=== PATIENT | female | born 1945 | race Caucasian/White ===

== ENCOUNTER 2022-01-04 19:12 | Inpatient (IN) | payer OTHER ==
[2022-01-04 23:05] LABS: BASO % 0.4 % (0-2.0); EOS % 0.6 % (0-4.5); HEMATOCRIT 39.3 % (32.4-45.2); LYMPH % 58.6 % (8-40); MCHC 33.1 g/dl (32.0-36.0); MEAN CELL VOLUME 99.5 fl (80-96); MEAN PLT VOLUME 8.1 fl (7.5-11.1); MONO % 5.3 % (3.8-10.2); NEUT % 35.1 % (42.8-82.8); PLATELET COUNT 100 10^3/uL (134-434); RBC 3.95 M/mm3 (3.60-5.2); RDW 13.9 % (11.6-15.6); WHITE BLOOD COUNT 10.3 K/mm3 (4.0-10.0)
[2022-01-04 23:27] LABS: CALCIUM 8.2 mg/dL (8.5-10.1)
[2022-01-04 23:28] LABS: ALBUMIN 3.3 g/dl (3.4-5.0); BLOOD UREA NITROGEN 29.5 mg/dL (7-18)
[2022-01-04 23:32] LABS: BILIRUBIN,TOTAL 0.4 mg/dL (0.2-1)
[2022-01-04 23:33] LABS: TOT PROT 5.7 g/dl (6.4-8.2)
[2022-01-04 23:34] LABS: CREATININE 0.3 mg/dL (0.55-1.3)
[2022-01-05] MEDS: ALBUTEROL SO4 2.5/IPRATROPIUM 0.5 INH SOL 3 ML VIAL.NEB. NEB SCH ×3 (08:24→19:30)
[2022-01-05] MEDS: TAMSULOSIN HCL 0.4 MG CAP PO SCH (09:28)
[2022-01-05] MEDS: ENOXAPARIN NA (PORCINE) 40 MG/0.4 ML DISP.SYRIN SQ SCH (09:28)
[2022-01-05] MEDS: FUROSEMIDE 20 MG TABLET (FP) PO SCH (09:28)
[2022-01-05] MEDS: levETIRAcetam 500 MG TABLET (FP) PO SCH ×2 (09:28→22:42)
[2022-01-05 11:06] LABS: HEMATOCRIT 41.2 % (32.4-45.2); HEMOGLOBIN 13.7 GM/dL (10.7-15.3); MCH 33.7 pg (25.7-33.7); MCHC 33.2 g/dl (32.0-36.0); MEAN CELL VOLUME 101.6 fl (80-96); MEAN PLT VOLUME 9.4 fl (7.5-11.1); PLATELET COUNT 116 10^3/uL (134-434); RBC 4.05 M/mm3 (3.60-5.2); RDW 13.7 % (11.6-15.6); WHITE BLOOD COUNT 12.3 K/mm3 (4.0-10.0)
[2022-01-05 12:13] LABS: ALBUMIN 3.4 g/dl (3.4-5.0); BILIRUBIN,TOTAL 0.4 mg/dL (0.2-1); BLOOD UREA NITROGEN 29.2 mg/dL (7-18); CALCIUM 8.4 mg/dL (8.5-10.1); CREATININE 0.5 mg/dL (0.55-1.3); MAGNESIUM 2.1 mg/dL (1.8-2.4); TOT PROT 5.7 g/dl (6.4-8.2)
[2022-01-05 12:37] LABS: ANISOCYTOSIS 2+; MACROCYTOSIS 0; OVALOCYTE 2+
[2022-01-05] MEDS: ATORVASTATIN CA 80 MG TABLET (FP) PO SCH (22:42)
[2022-01-06 06:46] LABS: EPI CELLS 5 /uL (0-25.1); HYALINE CASTS 0 /uL (0-3.1); PH,URINE 5.5 (5.0-8.0); URINE APPEARANCE CLEAR; URINE BACTERIA 3 /uL (0-1359); URINE BILIRUBIN NEGATIVE (NEGATIVE); URINE COLOR YELLOW; URINE GLUCOSE (UA) NEGATIVE (NEGATIVE); URINE KETONE NEGATIVE (NEGATIVE); URINE LEUK ESTERASE NEGATIVE (NEGATIVE); URINE NITRITE NEGATIVE (NEGATIVE); URINE PROTEIN NEGATIVE (NEGATIVE); URINE RBC 14 /uL (0-23.9); URINE UROBILINOGEN 0.2 mg/dL (0.2-1.0); URINE WBC 5 /uL (0-25.8)
[2022-01-06] MEDS: TAMSULOSIN HCL 0.4 MG CAP PO SCH (08:11)
[2022-01-06] MEDS: ALBUTEROL SO4 2.5/IPRATROPIUM 0.5 INH SOL 3 ML VIAL.NEB. NEB SCH ×3 (08:26→20:40)
[2022-01-06 09:25] LABS: URINE CRYSTALS PRESENT CA OXALATE /hpf
[2022-01-06] MEDS: levETIRAcetam 500 MG TABLET (FP) PO SCH ×2 (10:24→21:29)
[2022-01-06] MEDS: FUROSEMIDE 20 MG TABLET (FP) PO SCH (10:24)
[2022-01-06] MEDS: ENOXAPARIN NA (PORCINE) 40 MG/0.4 ML DISP.SYRIN SQ SCH (10:24)
[2022-01-06 11:16] LABS: HEMATOCRIT 38.8 % (32.4-45.2); HEMOGLOBIN 12.6 GM/dL (10.7-15.3); MCH 33.2 pg (25.7-33.7); MCHC 32.6 g/dl (32.0-36.0); MEAN CELL VOLUME 101.8 fl (80-96); MEAN PLT VOLUME 8.1 fl (7.5-11.1); PLATELET COUNT 92 10^3/uL (134-434); RBC 3.81 M/mm3 (3.60-5.2); RDW 13.8 % (11.6-15.6); WHITE BLOOD COUNT 8.6 K/mm3 (4.0-10.0)
[2022-01-06 11:37] LABS: CALCIUM 8.5 mg/dL (8.5-10.1)
[2022-01-06 11:38] LABS: ALBUMIN 3.2 g/dl (3.4-5.0); BLOOD UREA NITROGEN 19.6 mg/dL (7-18)
[2022-01-06 11:41] LABS: CREATININE 0.5 mg/dL (0.55-1.3)
[2022-01-06 11:42] LABS: TOT PROT 5.2 g/dl (6.4-8.2)
[2022-01-06 11:43] LABS: BILIRUBIN,TOTAL 0.4 mg/dL (0.2-1)
[2022-01-06 11:49] LABS: ANISOCYTOSIS 0; MACROCYTOSIS 0; PLATELET ESTIMATE DECREASED
[2022-01-06] MEDS ORDERED: POTASSIUM CHLORIDE TABS 20 MEQ TABLET.ER (FP) PO ONE (12:15)
[2022-01-06] MEDS ORDERED: REMDESIVIR 100 MG in SODIUM CHLORIDE 250 ML IVPB SCH (15:45)
[2022-01-06 16:45] LABS: ARTERIAL BLD GAS O2 SATURATION 93.8 % (95-98); ARTERIAL BLOOD GAS BASE EXCESS 14.4 mmol/L (-2-2); ARTERIAL BLOOD GAS PO2 74.1 mmHg (80-100); ARTERIAL BLOOD GAS pH 7.373 (7.350-7.450)
[2022-01-06] MEDS: ATORVASTATIN CA 80 MG TABLET (FP) PO SCH (21:29)
[2022-01-06] MEDS: OLANZapine 5 MG TABLET PO SCH (21:29)
[2022-01-07] MEDS: TAMSULOSIN HCL 0.4 MG CAP PO SCH (10:02)
[2022-01-07] MEDS: levETIRAcetam 500 MG TABLET (FP) PO SCH ×2 (10:02→21:07)
[2022-01-07] MEDS: OLANZapine 5 MG TABLET PO SCH ×3 (10:03→21:07)
[2022-01-07] MEDS: ENOXAPARIN NA (PORCINE) 40 MG/0.4 ML DISP.SYRIN SQ SCH (10:03)
[2022-01-07] MEDS: FUROSEMIDE 20 MG TABLET (FP) PO SCH (10:22)
[2022-01-07 10:59] LABS: HEMOGLOBIN 12.7 GM/dL (10.7-15.3); MCH 32.2 pg (25.7-33.7); MCHC 31.8 g/dl (32.0-36.0); MEAN CELL VOLUME 101.1 fl (80-96); MEAN PLT VOLUME 8.3 fl (7.5-11.1); PLATELET COUNT 102 10^3/uL (134-434); RBC 3.96 M/mm3 (3.60-5.2); RDW 13.6 % (11.6-15.6)
[2022-01-07] MEDS: ALBUTEROL SO4 2.5/IPRATROPIUM 0.5 INH SOL 3 ML VIAL.NEB. NEB SCH ×3 (11:00→20:13)
[2022-01-07 11:36] LABS: ANISOCYTOSIS 1+; MACROCYTOSIS 1+
[2022-01-07 12:00] LABS: CALCIUM 8.4 mg/dL (8.5-10.1)
[2022-01-07 12:01] LABS: BLOOD UREA NITROGEN 22.3 mg/dL (7-18)
[2022-01-07 12:02] LABS: CREATININE 0.4 mg/dL (0.55-1.3)
[2022-01-07 12:05] LABS: BILIRUBIN,TOTAL 0.4 mg/dL (0.2-1)
[2022-01-07] MEDS: ATORVASTATIN CA 80 MG TABLET (FP) PO SCH (21:07)
[2022-01-08] MEDS: ALBUTEROL SO4 2.5/IPRATROPIUM 0.5 INH SOL 3 ML VIAL.NEB. NEB SCH ×3 (08:57→20:39)
[2022-01-08] MEDS: TAMSULOSIN HCL 0.4 MG CAP PO SCH (09:26)
[2022-01-08] MEDS: OLANZapine 5 MG TABLET PO SCH ×2 (09:26→22:18)
[2022-01-08] MEDS: levETIRAcetam 500 MG TABLET (FP) PO SCH ×2 (09:26→22:18)
[2022-01-08] MEDS: FUROSEMIDE 20 MG TABLET (FP) PO SCH (09:26)
[2022-01-08] MEDS: ENOXAPARIN NA (PORCINE) 40 MG/0.4 ML DISP.SYRIN SQ SCH ×2 (09:28→09:36)
[2022-01-08 09:59] LABS: HEMATOCRIT 39.5 % (32.4-45.2); HEMOGLOBIN 12.7 GM/dL (10.7-15.3); MCH 32.8 pg (25.7-33.7); MCHC 32.1 g/dl (32.0-36.0); MEAN CELL VOLUME 102.1 fl (80-96); MEAN PLT VOLUME 8.2 fl (7.5-11.1); PLATELET COUNT 110 10^3/uL (134-434); RBC 3.87 M/mm3 (3.60-5.2); RDW 13.9 % (11.6-15.6); WHITE BLOOD COUNT 9.4 K/mm3 (4.0-10.0)
[2022-01-08 10:27] LABS: ALBUMIN 3.2 g/dl (3.4-5.0); BLOOD UREA NITROGEN 27.1 mg/dL (7-18); CALCIUM 8.5 mg/dL (8.5-10.1); CREATININE 0.4 mg/dL (0.55-1.3)
[2022-01-08 10:28] LABS: ANISOCYTOSIS 2+; MACROCYTOSIS 2+; PLATELET ESTIMATE DECREASED
[2022-01-08 10:29] LABS: TOT PROT 5.2 g/dl (6.4-8.2)
[2022-01-08 10:31] LABS: BILIRUBIN,TOTAL 0.4 mg/dL (0.2-1)
[2022-01-08] MEDS: ATORVASTATIN CA 80 MG TABLET (FP) PO SCH (22:18)
[2022-01-09] MEDS: ALBUTEROL SO4 2.5/IPRATROPIUM 0.5 INH SOL 3 ML VIAL.NEB. NEB SCH ×3 (08:25→20:11)
[2022-01-09] MEDS: OLANZapine 5 MG TABLET PO SCH ×2 (09:22→21:10)
[2022-01-09] MEDS: TAMSULOSIN HCL 0.4 MG CAP PO SCH (09:22)
[2022-01-09] MEDS: FUROSEMIDE 20 MG TABLET (FP) PO SCH (09:22)
[2022-01-09] MEDS: levETIRAcetam 500 MG TABLET (FP) PO SCH ×2 (09:22→21:10)
[2022-01-09] MEDS: ENOXAPARIN NA (PORCINE) 40 MG/0.4 ML DISP.SYRIN SQ SCH (09:23)
[2022-01-09 09:27] LABS: CHLORIDE 96 mmol/L (98-107); SODIUM 144 mmol/L (136-145)
[2022-01-09 09:31] LABS: BLOOD UREA NITROGEN 24.7 mg/dL (7-18); CALCIUM 8.8 mg/dL (8.5-10.1); GLUCOSE,RANDOM 105 mg/dL (74-106)
[2022-01-09 09:32] LABS: HEMATOCRIT 37.3 % (32.4-45.2); MCH 32.9 pg (25.7-33.7); MCHC 32.1 g/dl (32.0-36.0); MEAN CELL VOLUME 102.4 fl (80-96); MEAN PLT VOLUME 8.1 fl (7.5-11.1); PLATELET COUNT 95 10^3/uL (134-434); RBC 3.64 M/mm3 (3.60-5.2)
[2022-01-09 09:34] LABS: CREATININE 0.4 mg/dL (0.55-1.3); SGOT/AST 18 U/L (15-37); SGPT/ALT 28 U/L (13-61)
[2022-01-09 09:36] LABS: BILIRUBIN,TOTAL 0.2 mg/dL (0.2-1)
[2022-01-09 09:37] LABS: ALK PHOS 34 U/L (45-117)
[2022-01-09 10:19] LABS: ANION GAP 4 MMOL/L (8-16); CO2 > 45 mmol/L (21-32)
[2022-01-09 11:13] LABS: ANISOCYTOSIS 0; HELMET CELLS 0; HOWELL-JOLLY BODIES 0; MACROCYTOSIS 0; OVALOCYTE 0; ROULEAU 0; SICKELED CELLS 0; TARGET CELLS 0; TEAR DROP CELLS 0; TOXIC GRANULATION 0
[2022-01-09] MEDS: ATORVASTATIN CA 80 MG TABLET (FP) PO SCH (21:10)
[2022-01-10] MEDS: levETIRAcetam 500 MG TABLET (FP) PO SCH ×3 (04:53→21:25)
[2022-01-10] MEDS: ATORVASTATIN CA 80 MG TABLET (FP) PO SCH ×2 (04:54→21:25)
[2022-01-10] MEDS: OLANZapine 5 MG TABLET PO SCH ×3 (04:54→21:25)
[2022-01-10] MEDS: ALBUTEROL SO4 2.5/IPRATROPIUM 0.5 INH SOL 3 ML VIAL.NEB. NEB SCH ×3 (08:15→20:26)
[2022-01-10] MEDS: TAMSULOSIN HCL 0.4 MG CAP PO SCH (09:21)
[2022-01-10] MEDS: FUROSEMIDE 20 MG TABLET (FP) PO SCH (09:21)
[2022-01-10] MEDS: ENOXAPARIN NA (PORCINE) 40 MG/0.4 ML DISP.SYRIN SQ SCH (09:21)
[2022-01-10 10:48] LABS: HEMATOCRIT 37.1 % (32.4-45.2); MCH 33.1 pg (25.7-33.7); MCHC 32.4 g/dl (32.0-36.0); MEAN CELL VOLUME 102.1 fl (80-96); MEAN PLT VOLUME 8.1 fl (7.5-11.1); PLATELET COUNT 108 10^3/uL (134-434); RBC 3.63 M/mm3 (3.60-5.2); RDW 13.7 % (11.6-15.6); WHITE BLOOD COUNT 9.3 K/mm3 (4.0-10.0)
[2022-01-10 11:08] LABS: CHLORIDE 96 mmol/L (98-107); SODIUM 145 mmol/L (136-145)
[2022-01-10 11:21] LABS: ALBUMIN 3.1 g/dl (3.4-5.0); BLOOD UREA NITROGEN 22.6 mg/dL (7-18); GLUCOSE,RANDOM 128 mg/dL (74-106); MAGNESIUM 2.2 mg/dL (1.8-2.4)
[2022-01-10 11:24] LABS: CREATININE 0.4 mg/dL (0.55-1.3); SGOT/AST 27 U/L (15-37)
[2022-01-10 11:26] LABS: BILIRUBIN,TOTAL 0.3 mg/dL (0.2-1); TOT PROT 5.2 g/dl (6.4-8.2)
[2022-01-10 11:27] LABS: ALK PHOS 40 U/L (45-117)
[2022-01-10 11:28] LABS: SGPT/ALT 38 U/L (13-61)
[2022-01-10 11:35] LABS: ANISOCYTOSIS 1+; MACROCYTOSIS 1+
[2022-01-10 12:01] LABS: ANION GAP 3 MMOL/L (8-16); CO2 > 45 mmol/L (21-32)
[2022-01-10] MEDS: LORazepam 0.5 MG TABLET PO PRN ×2 (22:43→22:56)
[2022-01-11 05:31] LABS: ARTERIAL BLD GAS O2 SATURATION 94.5 % (95-98); ARTERIAL BLOOD GAS BASE EXCESS 19.6 mmol/L (-2-2); ARTERIAL BLOOD GAS PO2 88.5 mmHg (80-100); ARTERIAL BLOOD GAS pH 7.267 (7.350-7.450)
[2022-01-11 05:35] LABS: ALLENS TEST POSITIVE
[2022-01-11 07:16] LABS: ARTERIAL BLD GAS O2 SATURATION 97.3 % (95-98); ARTERIAL BLOOD GAS BASE EXCESS 20.9 mmol/L (-2-2); ARTERIAL BLOOD GAS PO2 119.1 mmHg (80-100); ARTERIAL BLOOD GAS pH 7.265 (7.350-7.450)
[2022-01-11 07:18] LABS: ALLENS TEST POSITIVE
[2022-01-11 07:19] LABS: VENT MODE S/T; VENT RATE 20
[2022-01-11] MEDS: ALBUTEROL SO4 2.5/IPRATROPIUM 0.5 INH SOL 3 ML VIAL.NEB. NEB SCH ×3 (08:05→20:25)
[2022-01-11] MEDS ORDERED: methylPREDNISolone NA SUCC 125 MG/2 ML VIAL IVPUSH ONE (08:41)
[2022-01-11] MEDS ORDERED: ALBUTEROL SO4 2.5/IPRATROPIUM 0.5 INH SOL 3 ML VIAL.NEB. NEB ONE (08:42)
[2022-01-11] MEDS ORDERED: SODIUM CHLORIDE 1,000 ML IV SCH (09:00)
[2022-01-11] MEDS: TAMSULOSIN HCL 0.4 MG CAP PO SCH (09:20)
[2022-01-11] MEDS ORDERED: FLUMAZENIL 0.5 MG/5 ML VIAL IVPUSH ONE (09:45)
[2022-01-11] MEDS: ENOXAPARIN NA (PORCINE) 40 MG/0.4 ML DISP.SYRIN SQ SCH (10:00)
[2022-01-11] MEDS ORDERED: levETIRAcetam 500 MG/5 ML INJECTION VIAL IVPB SCH (10:00)
[2022-01-11] MEDS: OLANZapine 5 MG TABLET PO SCH ×2 (10:10→21:04)
[2022-01-11 11:56] LABS: BASO % 0.6 % (0-2.0); EOS % 1.3 % (0-4.5); HEMOGLOBIN 11.7 GM/dL (10.7-15.3); LYMPH % 54.3 % (8-40); MCH 32.5 pg (25.7-33.7); MCHC 31.7 g/dl (32.0-36.0); MEAN CELL VOLUME 102.4 fl (80-96); MEAN PLT VOLUME 8.2 fl (7.5-11.1); MONO % 5.3 % (3.8-10.2); NEUT % 38.5 % (42.8-82.8); PLATELET COUNT 112 10^3/uL (134-434); RBC 3.61 M/mm3 (3.60-5.2); RDW 13.8 % (11.6-15.6); WHITE BLOOD COUNT 6.8 K/mm3 (4.0-10.0)
[2022-01-11 12:12] LABS: CHLORIDE 96 mmol/L (98-107); SODIUM 144 mmol/L (136-145)
[2022-01-11 12:14] LABS: CALCIUM 8.5 mg/dL (8.5-10.1)
[2022-01-11 12:15] LABS: ALBUMIN 3.2 g/dl (3.4-5.0); BLOOD UREA NITROGEN 21.6 mg/dL (7-18); GLUCOSE,RANDOM 92 mg/dL (74-106); MAGNESIUM 2.6 mg/dL (1.8-2.4)
[2022-01-11 12:18] LABS: CREATININE 0.3 mg/dL (0.55-1.3); PHOSPHOROUS 4.7 mg/dL (2.5-4.9); SGOT/AST 29 U/L (15-37); SGPT/ALT 47 U/L (13-61)
[2022-01-11 12:20] LABS: BILIRUBIN,TOTAL 0.4 mg/dL (0.2-1); TOT PROT 5.5 g/dl (6.4-8.2)
[2022-01-11 12:21] LABS: ALK PHOS 42 U/L (45-117)
[2022-01-11 12:31] LABS: ANION GAP 3 MMOL/L (8-16); CO2 > 45 mmol/L (21-32)
[2022-01-11] MEDS: SODIUM CHLORIDE 1,000 ML IV SCH (13:34)
[2022-01-11] MEDS: methylPREDNISolone NA SUCC 40 MG/1 ML VIAL IVPUSH SCH (17:49)
[2022-01-11] MEDS ORDERED: methylPREDNISolone NA SUCC 40 MG/1 ML VIAL IVPUSH SCH (18:00)
[2022-01-11 18:03] LABS: ARTERIAL BLD GAS O2 SATURATION 97.4 % (95-98); ARTERIAL BLOOD GAS BASE EXCESS 13.1 mmol/L (-2-2); ARTERIAL BLOOD GAS PO2 99.2 mmHg (80-100)
[2022-01-11 18:04] LABS: ALLENS TEST POSITIVE; VENT MODE S/T; VENT RATE 24
[2022-01-11] MEDS: DEXMEDETOMIDINE PREMIX 400 MCG/100 ML BAG IVPB SCH (19:55)
[2022-01-11] MEDS: MUPIROCIN 2% TOPICAL OINTMENT FOR DECOLONIZATION NS SCH (21:03)
[2022-01-11] MEDS: CHLORHEXIDINE GLUCONATE 4% CLEANSER FOR DECOLONIZATION TP SCH (21:03)
[2022-01-11] MEDS: levETIRAcetam 500 MG/5 ML INJECTION VIAL IVPB SCH (21:03)
[2022-01-11] MEDS: ATORVASTATIN CA 80 MG TABLET (FP) PO SCH (21:04)
[2022-01-11] MEDS ORDERED: CHLORHEXIDINE GLUCONATE 4% CLEANSER FOR DECOLONIZATION TP SCH (22:00)
[2022-01-11] MEDS ORDERED: MUPIROCIN 2% TOPICAL OINTMENT FOR DECOLONIZATION NS SCH (22:00)
[2022-01-12] MEDS: methylPREDNISolone NA SUCC 40 MG/1 ML VIAL IVPUSH SCH ×3 (01:21→21:14)
[2022-01-12] MEDS: SODIUM CHLORIDE 1,000 ML IV SCH ×2 (06:13→21:42)
[2022-01-12] MEDS: DEXMEDETOMIDINE PREMIX 400 MCG/100 ML BAG IVPB SCH ×2 (06:13→20:11)
[2022-01-12 07:13] LABS: HEMATOCRIT 37.4 % (32.4-45.2); MCH 32.6 pg (25.7-33.7); MCHC 32.1 g/dl (32.0-36.0); MEAN CELL VOLUME 101.5 fl (80-96); MEAN PLT VOLUME 8.6 fl (7.5-11.1); PLATELET COUNT 103 10^3/uL (134-434); RBC 3.69 M/mm3 (3.60-5.2); RDW 13.9 % (11.6-15.6); WHITE BLOOD COUNT 8.6 K/mm3 (4.0-10.0)
[2022-01-12 07:32] LABS: BLOOD UREA NITROGEN 31.6 mg/dL (7-18); CALCIUM 7.9 mg/dL (8.5-10.1)
[2022-01-12 07:33] LABS: ALBUMIN 2.9 g/dl (3.4-5.0); MAGNESIUM 2.4 mg/dL (1.8-2.4)
[2022-01-12 07:36] LABS: CREATININE 0.3 mg/dL (0.55-1.3)
[2022-01-12 07:37] LABS: BILIRUBIN,TOTAL 0.4 mg/dL (0.2-1); TOT PROT 5.1 g/dl (6.4-8.2)
[2022-01-12] MEDS: ALBUTEROL SO4 2.5/IPRATROPIUM 0.5 INH SOL 3 ML VIAL.NEB. NEB SCH ×4 (07:54→20:21)
[2022-01-12] MEDS ORDERED: ALBUTEROL SO4 HFA INHALER IH PRN (08:13)
[2022-01-12 09:08] LABS: ARTERIAL BLD GAS O2 SATURATION 98.4 % (95-98); ARTERIAL BLOOD GAS BASE EXCESS 8.4 mmol/L (-2-2); ARTERIAL BLOOD GAS PO2 125.9 mmHg (80-100); ARTERIAL BLOOD GAS pH 7.384 (7.350-7.450)
[2022-01-12 09:10] LABS: ALLENS TEST POSITIVE
[2022-01-12 09:11] LABS: VENT MODE ST; VENT RATE 24
[2022-01-12 09:51] LABS: ANISOCYTOSIS 0; HELMET CELLS 0; HOWELL-JOLLY BODIES 0; MACROCYTOSIS 0; OVALOCYTE 0; ROULEAU 0; SICKELED CELLS 0; TARGET CELLS 0; TEAR DROP CELLS 0; TOXIC GRANULATION 0
[2022-01-12] MEDS: MUPIROCIN 2% TOPICAL OINTMENT FOR DECOLONIZATION NS SCH ×2 (10:47→22:35)
[2022-01-12] MEDS: levETIRAcetam 500 MG/5 ML INJECTION VIAL IVPB SCH ×2 (10:47→21:11)
[2022-01-12] MEDS: TAMSULOSIN HCL 0.4 MG CAP PO SCH (10:48)
[2022-01-12] MEDS: OLANZapine 5 MG TABLET PO SCH ×2 (10:48→21:12)
[2022-01-12] MEDS: ATORVASTATIN CA 80 MG TABLET (FP) PO SCH (21:11)
[2022-01-12] MEDS: CHLORHEXIDINE GLUCONATE 4% CLEANSER FOR DECOLONIZATION TP SCH (21:12)
[2022-01-13] MEDS: methylPREDNISolone NA SUCC 40 MG/1 ML VIAL IVPUSH SCH ×4 (01:40→18:56)
[2022-01-13] MEDS: DEXMEDETOMIDINE PREMIX 400 MCG/100 ML BAG IVPB SCH (05:30)
[2022-01-13 07:42] LABS: HEMATOCRIT 38.6 % (32.4-45.2); HEMOGLOBIN 12.2 GM/dL (10.7-15.3); MCH 32.4 pg (25.7-33.7); MCHC 31.8 g/dl (32.0-36.0); MEAN CELL VOLUME 102.1 fl (80-96); MEAN PLT VOLUME 8.5 fl (7.5-11.1); PLATELET COUNT 99 10^3/uL (134-434); RBC 3.78 M/mm3 (3.60-5.2); RDW 13.8 % (11.6-15.6); WHITE BLOOD COUNT 12.2 K/mm3 (4.0-10.0)
[2022-01-13] MEDS: ALBUTEROL SO4 2.5/IPRATROPIUM 0.5 INH SOL 3 ML VIAL.NEB. NEB SCH ×4 (08:00→19:38)
[2022-01-13] MEDS: TAMSULOSIN HCL 0.4 MG CAP PO SCH (08:35)
[2022-01-13 08:45] LABS: CALCIUM 7.7 mg/dL (8.5-10.1)
[2022-01-13 08:46] LABS: ALBUMIN 2.9 g/dl (3.4-5.0); BLOOD UREA NITROGEN 39.2 mg/dL (7-18)
[2022-01-13 08:49] LABS: CREATININE 0.3 mg/dL (0.55-1.3)
[2022-01-13 08:51] LABS: BILIRUBIN,TOTAL 0.5 mg/dL (0.2-1)
[2022-01-13] MEDS: levETIRAcetam 500 MG/5 ML INJECTION VIAL IVPB SCH ×2 (09:14→22:23)
[2022-01-13] MEDS: SODIUM CHLORIDE 1,000 ML IV SCH ×4 (09:15→19:05)
[2022-01-13] MEDS: ENOXAPARIN NA (PORCINE) 40 MG/0.4 ML DISP.SYRIN SQ SCH ×2 (09:15→19:05)
[2022-01-13] MEDS: OLANZapine 5 MG TABLET PO SCH ×2 (09:16→22:23)
[2022-01-13 11:01] LABS: ANISOCYTOSIS 0; HELMET CELLS 0; HOWELL-JOLLY BODIES 0; MACROCYTOSIS 0; OVALOCYTE 0; ROULEAU 0; SICKELED CELLS 0; TARGET CELLS 0; TEAR DROP CELLS 0; TOXIC GRANULATION 0
[2022-01-13] MEDS: MUPIROCIN 2% TOPICAL OINTMENT FOR DECOLONIZATION NS SCH (12:49)
[2022-01-13] MEDS ORDERED: AMINO ACIDS 4.25%/D5W 1,000 ML IV SCH (13:30)
[2022-01-13 16:30] VITALS: BMI 17.4
[2022-01-13] MEDS ORDERED: ALBUTEROL SO4 HFA INHALER IH PRN (17:57)
[2022-01-13] MEDS: ATORVASTATIN CA 80 MG TABLET (FP) PO SCH (22:23)
[2022-01-14] MEDS: methylPREDNISolone NA SUCC 40 MG/1 ML VIAL IVPUSH SCH ×3 (01:14→17:01)
[2022-01-14] MEDS: ALBUTEROL SO4 2.5/IPRATROPIUM 0.5 INH SOL 3 ML VIAL.NEB. NEB SCH ×4 (07:25→20:24)
[2022-01-14 08:01] LABS: HEMOGLOBIN 12.2 GM/dL (10.7-15.3); MEAN CELL VOLUME 103.2 fl (80-96); MEAN PLT VOLUME 8.1 fl (7.5-11.1); PLATELET COUNT 128 10^3/uL (134-434); RBC 3.69 M/mm3 (3.60-5.2); RDW 14.3 % (11.6-15.6); WHITE BLOOD COUNT 19.7 K/mm3 (4.0-10.0)
[2022-01-14 08:42] LABS: BLOOD UREA NITROGEN 24.8 mg/dL (7-18); CALCIUM 7.7 mg/dL (8.5-10.1); PHOSPHOROUS 4.1 mg/dL (2.5-4.9)
[2022-01-14 08:43] LABS: MAGNESIUM 2.4 mg/dL (1.8-2.4); TOT PROT 5.2 g/dl (6.4-8.2)
[2022-01-14 08:45] LABS: CREATININE 0.5 mg/dL (0.55-1.3)
[2022-01-14 08:47] LABS: BILIRUBIN,TOTAL 0.3 mg/dL (0.2-1)
[2022-01-14] MEDS: levETIRAcetam 500 MG/5 ML INJECTION VIAL IVPB SCH ×2 (10:41→21:31)
[2022-01-14] MEDS: ENOXAPARIN NA (PORCINE) 40 MG/0.4 ML DISP.SYRIN SQ SCH (10:41)
[2022-01-14] MEDS: TAMSULOSIN HCL 0.4 MG CAP PO SCH (10:44)
[2022-01-14] MEDS: OLANZapine 5 MG TABLET PO SCH ×2 (10:46→22:15)
[2022-01-14] MEDS: SODIUM CHLORIDE 1,000 ML IV SCH ×2 (10:46→18:44)
[2022-01-14 14:17] LABS: EPI CELLS >36 /uL (0-25.1); HYALINE CASTS 103 /uL (0-3.1); PH,URINE >= 9.0 (5.0-8.0); URINE APPEARANCE TURBID; URINE BACTERIA >9,000 /uL (0-1359); URINE BILIRUBIN NEGATIVE (NEGATIVE); URINE COLOR YELLOW; URINE GLUCOSE (UA) NEGATIVE (NEGATIVE); URINE KETONE NEGATIVE (NEGATIVE); URINE LEUK ESTERASE 3+ (NEGATIVE); URINE NITRITE POSITIVE (NEGATIVE); URINE PROTEIN 2+ (NEGATIVE); URINE RBC 42 /uL (0-23.9); URINE WBC 53 /uL (0-25.8)
[2022-01-14] MEDS: ATORVASTATIN CA 80 MG TABLET (FP) PO SCH (21:31)
[2022-01-15] MEDS: methylPREDNISolone NA SUCC 40 MG/1 ML VIAL IVPUSH SCH ×4 (02:34→22:08)
[2022-01-15 08:39] LABS: HEMATOCRIT 36.6 % (32.4-45.2); HEMOGLOBIN 11.8 GM/dL (10.7-15.3); MCHC 32.1 g/dl (32.0-36.0); MEAN CELL VOLUME 102.8 fl (80-96); MEAN PLT VOLUME 8.2 fl (7.5-11.1); PLATELET COUNT 117 10^3/uL (134-434); RBC 3.56 M/mm3 (3.60-5.2); RDW 14.1 % (11.6-15.6); WHITE BLOOD COUNT 16.1 K/mm3 (4.0-10.0)
[2022-01-15] MEDS: ALBUTEROL SO4 2.5/IPRATROPIUM 0.5 INH SOL 3 ML VIAL.NEB. NEB SCH ×4 (08:47→21:13)
[2022-01-15] MEDS: TAMSULOSIN HCL 0.4 MG CAP PO SCH (08:48)
[2022-01-15 09:05] LABS: ALBUMIN 2.6 g/dl (3.4-5.0); BLOOD UREA NITROGEN 13.9 mg/dL (7-18); CALCIUM 7.4 mg/dL (8.5-10.1); MAGNESIUM 2.2 mg/dL (1.8-2.4)
[2022-01-15 09:09] LABS: CREATININE 0.3 mg/dL (0.55-1.3)
[2022-01-15 09:10] LABS: BILIRUBIN,TOTAL 0.2 mg/dL (0.2-1); TOT PROT 4.6 g/dl (6.4-8.2)
[2022-01-15] MEDS: OLANZapine 5 MG TABLET PO SCH ×2 (10:06→22:08)
[2022-01-15] MEDS: ENOXAPARIN NA (PORCINE) 40 MG/0.4 ML DISP.SYRIN SQ SCH (10:06)
[2022-01-15] MEDS: levETIRAcetam 500 MG/5 ML INJECTION VIAL IVPB SCH ×2 (10:06→22:08)
[2022-01-15] MEDS: PANTOPRAZOLE 40 MG TABLET PO SCH (10:07)
[2022-01-15 10:19] LABS: ANISOCYTOSIS 1+; MACROCYTOSIS 1+
[2022-01-15] MEDS: SODIUM CHLORIDE 1,000 ML IV SCH (17:19)
[2022-01-15] MEDS: ATORVASTATIN CA 80 MG TABLET (FP) PO SCH (22:08)
[2022-01-16] MEDS: SODIUM CHLORIDE 1,000 ML IV SCH ×2 (06:14→21:07)
[2022-01-16] MEDS: TAMSULOSIN HCL 0.4 MG CAP PO SCH (08:32)
[2022-01-16] MEDS: ALBUTEROL SO4 2.5/IPRATROPIUM 0.5 INH SOL 3 ML VIAL.NEB. NEB SCH ×4 (08:42→20:26)
[2022-01-16 09:21] LABS: HEMATOCRIT 41.5 % (32.4-45.2); HEMOGLOBIN 12.8 GM/dL (10.7-15.3); MCH 32.1 pg (25.7-33.7); MCHC 30.9 g/dl (32.0-36.0); MEAN CELL VOLUME 103.8 fl (80-96); MEAN PLT VOLUME 8.4 fl (7.5-11.1); PLATELET COUNT 159 10^3/uL (134-434); RDW 13.8 % (11.6-15.6)
[2022-01-16] MEDS: ENOXAPARIN NA (PORCINE) 40 MG/0.4 ML DISP.SYRIN SQ SCH (09:31)
[2022-01-16] MEDS: PANTOPRAZOLE 40 MG TABLET PO SCH (09:32)
[2022-01-16] MEDS: OLANZapine 5 MG TABLET PO SCH ×2 (09:32→21:08)
[2022-01-16] MEDS: methylPREDNISolone NA SUCC 40 MG/1 ML VIAL IVPUSH SCH (09:32)
[2022-01-16] MEDS: levETIRAcetam 500 MG/5 ML INJECTION VIAL IVPB SCH ×2 (09:32→21:08)
[2022-01-16 10:01] LABS: ALBUMIN 2.7 g/dl (3.4-5.0); BLOOD UREA NITROGEN 16.7 mg/dL (7-18)
[2022-01-16 10:02] LABS: CALCIUM 7.6 mg/dL (8.5-10.1); MAGNESIUM 2.3 mg/dL (1.8-2.4); WHITE BLOOD COUNT 31.1 K/mm3 (4.0-10.0)
[2022-01-16 10:04] LABS: BILIRUBIN,TOTAL 0.3 mg/dL (0.2-1); CREATININE 0.3 mg/dL (0.55-1.3)
[2022-01-16 10:26] LABS: ANISOCYTOSIS 2+; MACROCYTOSIS 2+
[2022-01-16] MEDS: CEFTRIAXONE 1 GM in DEXTROSE 5%-WATER - 50 ML IVPB SCH (11:38)
[2022-01-16] MEDS: ATORVASTATIN CA 80 MG TABLET (FP) PO SCH (21:07)
[2022-01-17] MEDS: ALBUTEROL SO4 2.5/IPRATROPIUM 0.5 INH SOL 3 ML VIAL.NEB. NEB SCH ×4 (07:29→21:34)
[2022-01-17 09:30] LABS: HEMATOCRIT 41.5 % (32.4-45.2); HEMOGLOBIN 13.5 GM/dL (10.7-15.3); MCH 33.2 pg (25.7-33.7); MCHC 32.5 g/dl (32.0-36.0); MEAN CELL VOLUME 102.3 fl (80-96); PLATELET COUNT 149 10^3/uL (134-434); RBC 4.05 M/mm3 (3.60-5.2); RDW 14.2 % (11.6-15.6)
[2022-01-17 09:37] LABS: WHITE BLOOD COUNT 30.3 K/mm3 (4.0-10.0)
[2022-01-17 09:55] LABS: BLOOD UREA NITROGEN 14.6 mg/dL (7-18)
[2022-01-17 09:57] LABS: CREATININE 0.4 mg/dL (0.55-1.3)
[2022-01-17 09:58] LABS: BILIRUBIN,TOTAL 0.4 mg/dL (0.2-1); TOT PROT 5.3 g/dl (6.4-8.2)
[2022-01-17] MEDS ORDERED: methylPREDNISolone NA SUCC 40 MG/1 ML VIAL IVPUSH SCH (10:00)
[2022-01-17] MEDS ORDERED: predniSONE 20 MG TABLET (UD) PO SCH (10:00)
[2022-01-17 10:07] LABS: ANISOCYTOSIS 2+; MACROCYTOSIS 2+; PLATELET ESTIMATE DECREASED
[2022-01-17] MEDS: CEFTRIAXONE 1 GM in DEXTROSE 5%-WATER - 50 ML IVPB SCH (10:42)
[2022-01-17] MEDS: ENOXAPARIN NA (PORCINE) 40 MG/0.4 ML DISP.SYRIN SQ SCH (10:43)
[2022-01-17] MEDS: PANTOPRAZOLE 40 MG TABLET PO SCH (10:45)
[2022-01-17] MEDS: TAMSULOSIN HCL 0.4 MG CAP PO SCH (10:45)
[2022-01-17] MEDS: OLANZapine 5 MG TABLET PO SCH ×2 (10:45→21:55)
[2022-01-17] MEDS: SODIUM CHLORIDE 1,000 ML IV SCH (11:01)
[2022-01-17] MEDS: levETIRAcetam 500 MG/5 ML INJECTION VIAL IVPB SCH (11:32)
[2022-01-17] MEDS: levETIRAcetam 500 MG TABLET (FP) PO SCH (21:55)
[2022-01-17] MEDS: ATORVASTATIN CA 80 MG TABLET (FP) PO SCH (21:55)
[2022-01-18] MEDS: ALBUTEROL SO4 2.5/IPRATROPIUM 0.5 INH SOL 3 ML VIAL.NEB. NEB SCH ×3 (07:30→16:11)
[2022-01-18 08:27] LABS: HEMATOCRIT 40.5 % (32.4-45.2); HEMOGLOBIN 13.1 GM/dL (10.7-15.3); MCH 32.9 pg (25.7-33.7); MCHC 32.3 g/dl (32.0-36.0); MEAN CELL VOLUME 101.9 fl (80-96); MEAN PLT VOLUME 7.9 fl (7.5-11.1); PLATELET COUNT 122 10^3/uL (134-434); RBC 3.97 M/mm3 (3.60-5.2); RDW 13.6 % (11.6-15.6); WHITE BLOOD COUNT 17.1 K/mm3 (4.0-10.0)
[2022-01-18 08:38] LABS: BLOOD UREA NITROGEN 12.2 mg/dL (7-18); CHLORIDE 99 mmol/L (98-107); SODIUM 147 mmol/L (136-145)
[2022-01-18 08:39] LABS: ALBUMIN 3.2 g/dl (3.4-5.0); MAGNESIUM 2.4 mg/dL (1.8-2.4)
[2022-01-18 08:41] LABS: ANION GAP 4 MMOL/L (8-16); CO2 > 45 mmol/L (21-32)
[2022-01-18 08:42] LABS: CREATININE 0.3 mg/dL (0.55-1.3)
[2022-01-18 08:43] LABS: SGOT/AST 26 U/L (15-37); SGPT/ALT 47 U/L (13-61)
[2022-01-18 08:45] LABS: ALK PHOS 46 U/L (45-117); BILIRUBIN,TOTAL 0.4 mg/dL (0.2-1); GLUCOSE,RANDOM 101 mg/dL (74-106); TOT PROT 5.6 g/dl (6.4-8.2)
[2022-01-18 09:23] LABS: ANISOCYTOSIS 1+; MACROCYTOSIS 1+
[2022-01-18] MEDS ORDERED: predniSONE 20 MG TABLET (UD) PO SCH (10:00)
[2022-01-18] MEDS: PANTOPRAZOLE 40 MG TABLET PO SCH (10:36)
[2022-01-18] MEDS: levETIRAcetam 500 MG TABLET (FP) PO SCH ×2 (10:36→22:14)
[2022-01-18] MEDS: ENOXAPARIN NA (PORCINE) 40 MG/0.4 ML DISP.SYRIN SQ SCH (10:36)
[2022-01-18] MEDS: CEFTRIAXONE 1 GM in DEXTROSE 5%-WATER - 50 ML IVPB SCH (10:36)
[2022-01-18] MEDS: predniSONE 20 MG TABLET (UD) PO SCH (10:37)
[2022-01-18] MEDS: OLANZapine 5 MG TABLET PO SCH ×2 (10:37→22:14)
[2022-01-18] MEDS: TAMSULOSIN HCL 0.4 MG CAP PO SCH (10:37)
[2022-01-18] MEDS: ATORVASTATIN CA 80 MG TABLET (FP) PO SCH (22:14)
[2022-01-19 09:05] LABS: HEMATOCRIT 39.3 % (32.4-45.2); HEMOGLOBIN 12.6 GM/dL (10.7-15.3); MCH 32.4 pg (25.7-33.7); MCHC 31.9 g/dl (32.0-36.0); MEAN CELL VOLUME 101.6 fl (80-96); MEAN PLT VOLUME 8.4 fl (7.5-11.1); PLATELET COUNT 132 10^3/uL (134-434); RBC 3.87 M/mm3 (3.60-5.2); RDW 13.7 % (11.6-15.6); WHITE BLOOD COUNT 17.2 K/mm3 (4.0-10.0)
[2022-01-19 09:22] LABS: CHLORIDE 98 mmol/L (98-107); SODIUM 147 mmol/L (136-145)
[2022-01-19 09:24] LABS: CALCIUM 8.1 mg/dL (8.5-10.1)
[2022-01-19 09:25] LABS: ALBUMIN 2.9 g/dl (3.4-5.0); ANION GAP 4 MMOL/L (8-16); BLOOD UREA NITROGEN 13.6 mg/dL (7-18); CO2 44 mmol/L (21-32); GLUCOSE,RANDOM 95 mg/dL (74-106); MAGNESIUM 2.2 mg/dL (1.8-2.4)
[2022-01-19 09:29] LABS: CREATININE 0.2 mg/dL (0.55-1.3); SGOT/AST 23 U/L (15-37); SGPT/ALT 49 U/L (13-61)
[2022-01-19 09:30] LABS: ALK PHOS 40 U/L (45-117); BILIRUBIN,TOTAL 0.3 mg/dL (0.2-1); TOT PROT 5.1 g/dl (6.4-8.2)
[2022-01-19] MEDS: levETIRAcetam 500 MG TABLET (FP) PO SCH ×2 (09:45→22:23)
[2022-01-19] MEDS: predniSONE 20 MG TABLET (UD) PO SCH (09:46)
[2022-01-19] MEDS: PANTOPRAZOLE 40 MG TABLET PO SCH (09:47)
[2022-01-19] MEDS: TAMSULOSIN HCL 0.4 MG CAP PO SCH (09:47)
[2022-01-19] MEDS: ENOXAPARIN NA (PORCINE) 40 MG/0.4 ML DISP.SYRIN SQ SCH (09:47)
[2022-01-19] MEDS: CEFTRIAXONE 1 GM in DEXTROSE 5%-WATER - 50 ML IVPB SCH (09:49)
[2022-01-19] MEDS: OLANZapine 5 MG TABLET PO SCH ×2 (11:22→22:23)
[2022-01-19 11:47] LABS: ANISOCYTOSIS 2+; MACROCYTOSIS 1+
[2022-01-19] MEDS: ATORVASTATIN CA 80 MG TABLET (FP) PO SCH (22:23)
[2022-01-20 07:26] VITALS: RESP 20
[2022-01-20] MEDS: TAMSULOSIN HCL 0.4 MG CAP PO SCH (08:38)
[2022-01-20 09:20] VITALS: BP 134/66; PULSE 103; TEMP 98.3
[2022-01-20] MEDS: ENOXAPARIN NA (PORCINE) 40 MG/0.4 ML DISP.SYRIN SQ SCH (09:42)
[2022-01-20] MEDS: PANTOPRAZOLE 40 MG TABLET PO SCH (09:42)
[2022-01-20] MEDS: levETIRAcetam 500 MG TABLET (FP) PO SCH (09:42)
[2022-01-20] MEDS: OLANZapine 5 MG TABLET PO SCH (09:43)
[2022-01-20] MEDS ORDERED: predniSONE 10 MG TABLET (UD) PO SCH (10:00)
[2022-01-20 10:30] LABS: HEMATOCRIT 39.1 % (32.4-45.2); HEMOGLOBIN 12.4 GM/dL (10.7-15.3); MCH 32.3 pg (25.7-33.7); MCHC 31.6 g/dl (32.0-36.0); MEAN CELL VOLUME 102.2 fl (80-96); MEAN PLT VOLUME 8.2 fl (7.5-11.1); PLATELET COUNT 145 10^3/uL (134-434); RBC 3.83 M/mm3 (3.60-5.2); RDW 13.4 % (11.6-15.6); WHITE BLOOD COUNT 18.5 K/mm3 (4.0-10.0)
[2022-01-20 11:00] LABS: CHLORIDE 96 mmol/L (98-107); SODIUM 145 mmol/L (136-145)
[2022-01-20 11:08] LABS: ANISOCYTOSIS 0; MACROCYTOSIS 0
[2022-01-20 11:28] LABS: CALCIUM 8.4 mg/dL (8.5-10.1)
[2022-01-20 11:29] LABS: ALBUMIN 2.9 g/dl (3.4-5.0); ANION GAP 5 MMOL/L (8-16); BLOOD UREA NITROGEN 21.6 mg/dL (7-18); CO2 44 mmol/L (21-32); GLUCOSE,RANDOM 130 mg/dL (74-106); MAGNESIUM 2.5 mg/dL (1.8-2.4)
[2022-01-20 11:31] LABS: SGPT/ALT 45 U/L (13-61)
[2022-01-20 11:32] LABS: CREATININE 0.4 mg/dL (0.55-1.3); SGOT/AST 22 U/L (15-37)
[2022-01-20 11:33] LABS: BILIRUBIN,TOTAL 0.4 mg/dL (0.2-1); TOT PROT 5.1 g/dl (6.4-8.2)
[2022-01-20 11:34] LABS: ALK PHOS 41 U/L (45-117)
[2022-01-20] MEDS ORDERED: POTASSIUM CHLORIDE TABS 20 MEQ TABLET.ER (FP) PO ONE (12:03)
[2022-01-20] MEDS ORDERED: CEFTRIAXONE 1 GM in DEXTROSE 5%-WATER - 50 ML IVPB SCH (12:45)
[2022-01-20] MEDS ORDERED: AMOX TR/POT CLAV 500MG/125MG TABLETS (FP) PO SCH (17:30)
[2022-01-22] MEDS ORDERED: predniSONE 20 MG TABLET (UD) PO SCH (10:00)
[2022-01-24] MEDS ORDERED: predniSONE 10 MG TABLET (UD) PO SCH (10:00)
== END 2022-01-20 16:15 | DRG 189 ==
LOC: JER 19:12 → JERBED 22:02 → UNDOADMOB 22:02 → INTOOBSV 22:02 → OBSVTOIN 22:02 → UNDOADMOB 23:02 → JERBED 23:02 → J5S 01-05 05:09 → JERBED 01-05 05:09 → OBSVTOIN 01-06 12:31 → INTOOBSV 01-06 12:31 → J5S 01-06 21:40 → JICU 01-11 13:04 → J5S 01-12 18:05 → JERBED 01-12 18:05 → JICU 01-12 18:05 → OBSVTOIN 01-13 08:24 → J7W 01-13 17:51
PROVIDERS: ADMIT Internal Medicine; ATTEND Nurse Practitioner Family
DX: J96.22 Acute and chronic respiratory failure with hypercapnia (principal); G93.41 Metabolic encephalopathy; E43 Unspecified severe protein-calorie malnutrition; J44.1 Chronic obstructive pulmonary disease with (acute) exacerbation; E87.3 Alkalosis; E87.20 Acidosis, unspecified; N39.0 Urinary tract infection, site not specified; R64 Cachexia; Z68.1 Body mass index [BMI] 19.9 or less, adult; J96.21 Acute and chronic respiratory failure with hypoxia; B96.4 Proteus (mirabilis) (morganii) as the cause of diseases classified elsewhere; I10 Essential (primary) hypertension; E78.5 Hyperlipidemia, unspecified; R62.7 Adult failure to thrive; R41.82 Altered mental status, unspecified; G40.909 Epilepsy, unspecified, not intractable, without status epilepticus; F17.210 Nicotine dependence, cigarettes, uncomplicated; D69.6 Thrombocytopenia, unspecified; D72.829 Elevated white blood cell count, unspecified; R45.1 Restlessness and agitation; Z99.81 Dependence on supplemental oxygen
CPT/HCPCS: 0241U-QW; 36415; 36600; 71045-TC-FY; 80053; 81003; 82803; 82962; 83605; 83735; 84100; 84443; 84484; 85025; 85027; 86140; 87040; 87086; 87186; 93005; 93010; 94640; 94660; 97116-GP; 97162-GP; 99285-25; C9803-CS; G0378; U0003; U0005